=== PATIENT | male | born 1980 | race Caucasian/White ===

== ENCOUNTER 2017-07-31 17:10 | Emergency (ER) | payer BC, OTHER ==
[2017-07-31 17:40] VITALS: BP 125/72
--- NOTE | 2017-07-31 18:43 | RAD ---
Indication: Fall, left elbow injury. 4 views of left elbow demonstrates a depressed fracture of the radial head. Joint effusion is noted. Anterior fat pad sign is noted. IMPRESSION: Depressed fracture of the radial head with joint effusion noted.
--- NOTE | 2017-07-31 18:48 | UC ---
Elbow Pain - HPI Summary HPI Summary: pt reports that he was playing soccer two days ago and fell with left arm outstretched and believes that he hyperextended his left elbow. Pt c/o pain with ROM that radiates from left elbow to forearm to wrist. pt c/o pain with pronation and supination. - History of Current Complaint Chief Complaint: UCUpperExtremity Stated Complaint: LEFT ELBOW SPORTS INJ Time Seen by Provider: 07/31/17 18:05 Hx Obtained From: Patient Onset/Duration: Days - 2, Traumatic, Still Present Severity Initially: Moderate Severity Currently: Mild Location Of Pain: Is Discrete @ - left elbow Character: Dull, Aching, Stiffness Aggravating Factor(s): Movement, Twisting Alleviating Factor(s): Rest, Ice Associated Signs And Symptoms: Positive: Swelling - Allergies/Home Medications Allergies/Adverse Reactions: Allergies Allergy/AdvReac Type Severity Reaction Status Date / Time No Known Allergies Allergy Verified 07/31/17 17:40 Home Medications: Home Medications Ibuprofen TAB* [Advil TAB*] 400 mg PO Q4H PRN 07/31/17 [History Confirmed ] PMH/Surg Hx/FS Hx/Imm Hx Previously Healthy: Yes - Surgical History Surgical History: Yes Surgery Procedure, Year, and Place: Appendectomy, [facility], 2010 - Family History Known Family History: Positive: Cardiac Disease - Social History Occupation: Employed Full-time Lives: With Family Alcohol Use: Occasionally Substance Use Type: None Smoking Status (MU): Heavy Every Day Tobacco Smoker Type: Cigarettes Amount Used/How Often: 1/2 pack daily Length of Time of Smoking/Using Tobacco: 5 YRS Have You Smoked in the Last Year: Yes Household Exposure Type: Cigarettes - Immunization History Most Recent Tetanus Shot: unknown Review of Systems Constitutional: Negative Skin: Negative Eyes: Negative ENT: Negative Respiratory: Negative Cardiovascular: Negative Gastrointestinal: Negative Genitourinary: Negative Motor: Decreased ROM - left elbow Neurovascular: Negative Musculoskeletal: Arthralgia - left elbow, Decreased ROM - left elbow Neurological: Negative Psychological: Negative Is Patient Immunocompromised?: No All Other Systems Reviewed And Are Negative: Yes Physical Exam Triage Information Reviewed: Yes Appearance: Well-Appearing Vital Signs: Initial Vital Signs Temp 98.2 F 07/31/17 17:34 Pulse 75 07/31/17 17:34 Resp 12 07/31/17 17:34 BP 125/72 07/31/17 17:34 Pulse Ox 100 07/31/17 17:34 Vital Signs Reviewed: Yes Eye Exam: Normal ENT Exam: Normal Neck exam: Normal Respiratory Exam: Normal Cardiovascular Exam: Normal Musculoskeletal Exam: Other Musculoskeletal: Positive: ROM Limited @ - left elbow, Other: - point tenderness at radial head and proximal ulna Neurological Exam: Normal Psychological Exam: Normal Skin Exam: Normal Elbow Pain Course/Dx - Differential Dx/Diagnosis Differential Diagnosis/HQI/PQRI: Fracture (Closed), Sprain, Strain Provider Diagnoses: left radial head fracture Discharge - Discharge Plan Condition: Stable Disposition: HOME Patient Education Materials: Elbow Fracture (ED) Forms: *Work Release Referrals: Teresa Luz MD [Medical Doctor] - If Needed Rachelle Tierney MD [Medical Doctor] -
== END 2017-07-31 18:57 | disposition home or self-care (01) ==
LOC: UCCORT 17:10
DX: S52.122A Displaced fracture of head of left radius, initial encounter for closed fracture (principal); W18.39XA Other fall on same level, initial encounter; Y93.66 Activity, soccer; Y92.9 Unspecified place or not applicable; F17.210 Nicotine dependence, cigarettes, uncomplicated
CPT/HCPCS: 99212; G0463